=== PATIENT | female | born 1995 | race Two or more races ===

== ENCOUNTER 2016-12-28 13:10 | Emergency (ER) | payer OTHER ==
[2016-12-28 15:47] VITALS: BP 140/80
--- NOTE | 2016-12-28 20:11 | EDM.PDOC ---
ED HISTORY OF PRESENT ILLNESS - General Chief Complaint: Chest Pain Stated Complaint: SICK Time Seen by Provider: 12/28/16 13:20 Source of Information: Reports: Patient History Limitations: Reports: No limitations - History of Present Illness INITIAL COMMENTS - FREE TEXT/NARRATIVE: Presents reporting a 6 hour history of right chest pain that increases with deep breath and with exercise. She denies nausea, vomiting, cough, fever or upper respiratory symptoms. She does not smoke. She is otherwise healthy without chronic medical problems. She did not try anything to palliate the pain. - Related Data Allergies/ADRs: Allergies Allergy/AdvReac Type Severity Reaction Status Date / Time latex Allergy Rash Verified 12/28/16 13:19 Penicillins Allergy Headache Verified 12/28/16 13:19 Home Meds: Home Meds Citalopram [Celexa] 20 mg PO DAILY 10/01/16 [History] Past Medical History - Past Health History Medical/Surgical History: Denies Medical/Surgical History Psychiatric History: Reports: Anxiety, Depression - Infectious Disease History Infectious Disease History: Reports: Chicken pox Social & Family History - Family History Family Medical History: Noncontributory - Tobacco Use Smoking Status *Q: Never Smoker Second Hand Smoke Exposure: No - Caffeine Use Caffeine Use: Reports: Soda - Recreational Drug Use Recreational Drug Use: No ED ROS GENERAL - Review of Systems Review Of Systems: ROS reveals no pertinent complaints other than HPI. ED EXAM, GENERAL - Physical Exam Exam: See Below Exam Limited By: No limitations General Appearance: alert, no apparent distress Ears: normal external exam Nose: normal inspection Throat/Mouth: Normal inspection Head: atraumatic, normocephalic Neck: normal inspection, supple, non-tender, full range of motion. No: lymphadenopathy (L), lymphadenopathy (R) Respiratory/Chest: no respiratory distress, lungs clear, normal breath sounds Cardiovascular: normal peripheral pulses, regular rate, rhythm GI/Abdominal: soft Back Exam: normal inspection Extremities: normal inspection Neurological: alert, oriented Psychiatric: normal affect Skin Exam: Warm, Dry, Intact, Normal color, No rash Lymphatic: no adenopathy Course - Vital Signs Last Recorded V/S: Last Vital Signs Temp 37.1 C 12/28/16 13:17 Pulse 71 12/28/16 14:15 Resp 20 12/28/16 14:15 BP 140/80 12/28/16 14:15 Pulse Ox 96 12/28/16 14:15 - Orders/Labs/Meds Orders: Active Orders 24 hr Category Date Time Status EKG 12 Lead [EKG Documentation Completion] [RC] STAT Care 12/28/16 15:48 Active Departure - Departure Time of Disposition: 14:40 Disposition: Home, Self-Care 01 Condition: good Clinical Impression: Costal chondritis Referrals: PCP,None [Primary Care Provider] - [facility] [Outside] [facility] [Outside] Forms: ED Department Discharge Additional Instructions: 1. prednisone 20 mg 2 tabs daily for the next 5 days 2. Aleve 2 tabs twice daily or ibuprofen 2-3 tabs 3 times daily as needed 3. followup in primary care 4. no softball until Tuesday, January 03, 2017 - My Orders Last 24 Hours: My Active Orders 12/28/16 15:48 EKG 12 Lead [EKG Documentation Completion] [RC] STAT - Assessment/Plan Last 24 Hours: My Active Orders 12/28/16 15:48 EKG 12 Lead [EKG Documentation Completion] [RC] STAT
== END 2016-12-28 14:41 | disposition home or self-care (01) ==
LOC: MW.ED 13:10
DX: M94.0 Chondrocostal junction syndrome [Tietze] (principal); Z79.899 Other long term (current) drug therapy; Z88.0 Allergy status to penicillin; Z91.040 Latex allergy status
CPT/HCPCS: 99283; 99284-25